=== PATIENT | female | born 1935 | race Caucasian/White ===

== ENCOUNTER → 2021-12-25 | Outpatient (CLI) | payer MEDICARE, OTHER, SELFPAY ==
--- NOTE | 2021-12-25 11:14 | RAD_ITS ---
EXAM: XR BILATERAL HIPS WITH PELVIS WHEN PERFORMED, 2 VIEWS CLINICAL INDICATION: HIP PAIN TECHNIQUE: Frontal view of the bilateral hips with pelvis when performed. This report was created using [employer] report generation technology. COMPARISON: None. FINDINGS: BONES/JOINTS: Mostly mild degenerative changes of the symphysis, SI joints, hips, and spine. No unusual lytic or sclerotic lesions of bone to include absence of acute or healing fracture or malalignment. Iliac crest enthesopathy. SOFT TISSUES: Soft tissues are normal. No soft tissue swelling or gas. 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 No acute or healing fracture or malalignment. Electronically Signed: Eulalio Nagy MD at 4:45 EDT ,
== END | disposition home or self-care (01) ==
LOC: RAD 11:04
PROVIDERS: PCP Internal Medicine; Referring Provider Anesthesiology Pain Medicine; Visit Provider Anesthesiology Pain Medicine
DX: M25.551 Pain in right hip (principal); M25.552 Pain in left hip
CPT/HCPCS: 73521

== ENCOUNTER 2023-03-25 09:28 | Emergency (ER) | payer MEDICARE, OTHER, SELFPAY ==
[2023-03-25 09:29] VITALS: BP 155/75; PULSE 56; RESP 16; TEMP 36.3; O2SAT 96; BMI 28.8
--- NOTE | 2023-03-25 10:57 | EX.ED.DYSGE1 ---
HPI History of Present Illness Chief Complaint: Headache Informant: patient and spouse/S.O. Narrative Narrative: Presents increasing pain nontraumatic right neck radiate up the side of her head in the occipital region. Pain goes into her shoulder. No fevers. She has had shingles with the vaccine. Is been no rash. 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 No diabetes history. States symptoms worse with head movement and palpation. Prior similar symptoms: No PFSH PFSH Medical History A-fib GERD (gastroesophageal reflux disease) HLD (hyperlipidemia) HTN (hypertension) Home Medications diltiazem HCl 120 mg capsule,extended release 24 hr 120 mg PO Q24H A-FIB 03/25/23 [History Last Taken Unknown] gabapentin 100 mg capsule 300 mg PO Q12H 03/25/23 [History Last Taken Unknown] hydrochlorothiazide 25 mg tablet 25 mg PO .Q24 03/25/23 [History Last Taken Unknown] lovastatin 20 mg tablet 20 mg PO DAILY 03/25/23 [History Last Taken Unknown] metoprolol tartrate 25 mg tablet 25 mg PO .Q24 03/25/23 [History Last Taken Unknown] prednisone 20 mg tablet 60 mg (3 x 20 mg) PO DAILY #15 TABLETS 03/25/23 [Rx Last Taken Unknown] Allergy/AdvReac Type Severity Reaction Status Date / Time Sulfa (Sulfonamide Allergy Severe Abd Verified 03/25/23 09:32 Antibiotics) cramps/diarrhea Surgical History (Updated 03/25/23 @ 10:10 by Ольга Edmondson) H/O shoulder surgery Social History Smoking Status: Never smoker ROS ROS ED Constitutional Constitutional ED: Denies chills, fever(s) or sweats Eyes Eyes: Denies change in vision ENT ENT ED: Denies dysphagia or sore throat Cardiovascular Cardiovascular: Denies chest pain, leg edema, palpitations or racing heartbeat Respiratory/Chest Respiratory/Chest: Denies cough, dyspnea or dyspnea on exertion Gastrointestinal Gastrointestinal: Denies abdominal pain, diarrhea or vomiting Genitourinary Genitourinary ED: Denies dysuria, hematuria or urinary frequency Musculoskeletal Musculoskeletal: Reports neck pain; Denies back pain or extremity pain Integumentary Denies rash or wounds Neurologic Neurologic: Reports headache(s); Denies paresthesias or weakness EXAM Physical Exam Const Vital Signs: 03/25/23 09:29 03/25/23 12:31 Temperature 97.4 F L Temperature Source Temporal Pulse Rate 56 L 84 Respiratory Rate 16 16 Blood Pressure 155/75 H Blood Pressure Mean 101 Pulse Ox 96 98 Oxygen Delivery Method Room Air Positive well nourished and well developed General Appearance ED: well developed and NAD HEENT Reports moist mucous membranes normocephalic and atraumatic Eyes PERRL, EOMs intact bilaterally and conjunctivae normal General Eye ED: Yes normal appearance of both eyes Neck no lymphadenopathy and supple General: tenderness and other Tender palpation over distal right paracervical. There is tightness and tension in this area. There is no current rash neck or scalp region. Spurling's test was negative bilaterally. Chest Wall Chest: Negative for tenderness Resp normal respiratory effort and normal air movement Effort and Inspection: symmetric chest movement; Negative for respiratory distress Cardio regular rate, regular rhythm and no murmurs Peripheral Pulses: pulses 2+ throughout GI normal to inspection, nondistended, normoactive bowel sounds and non-tender Palpation: Negative for guarding or rebound tenderness present Back/Spine no CVA tenderness and no thoracic nor lumbar tenderness Extremity normal to inspection General Extremety ED: Negative for edema or tenderness General Extremity: Negative for edema Neuro oriented x3 and no sensory deficits noted Sensorium / Orientation: awake and alert Skin no rashes or lesions noted and no wounds MDM MDM MDM Narrative Medical decision making narrative: Interventions / MDM: Differential diagnosis: Cervical neck strain, shingles Diagnosis considered but do not suspect: No clinical meningitis My EKG interpretation: N/A Imaging independently reviewed and interpreted by myself: N/A External documents reviewed: N/A Test considered but not ordered:N/A ED course: Patient exam notes tension right cervical region reproducible. However has tenderness with light touch occipital region at this time there is no current rash. She is nontoxic, no meningismus. Initial treated with Valium p.o. low-dose. Reevaluation she reports no improvement however on exam there is improved tension. She is nondiabetic she reports light touch sensation discomfort occiput region. Discussed highly possibility of shingles that could develop with her symptoms. Discussed starting steroids for which she agrees. She will increase her gabapentin to 3 times a day. She will monitor for rash discussed contacting PCP or returning for antiviral medications. She understands the plan. All questions were answered. Re-evaluation: stable Disposition discussed with patient/family/significant other: Patient and significant other Case discussed with consulting clinician: N/A This note was generated with [employer] dictation software. It may contain incorrect words, spelling, and punctuation that were not noted in checking the note before signing. Discharge Plan Triage Chief Complaint: Headache ED Provider: Kai Alvarez Dx/Rx/DC Orders Clinical Impression: Tension headache, Neck muscle strain Instructions: ED Headache, Tension, ED Neck Sprain or Strain Prescriptions: New prednisone 20 mg tablet 60 mg PO DAILY Qty: 15 0RF No Action diltiazem HCl 120 mg capsule,extended release 24hr 120 mg PO Q24H Patient Comments: TAKE 1 CAPSULE BY MOUTH EVERY DAY gabapentin 100 mg capsule 300 mg PO Q12H hydrochlorothiazide 25 mg tablet 25 mg PO .Q24 Patient Comments: TAKE 1 TABLET BY MOUTH EVERY DAY lovastatin 20 mg tablet 20 mg PO DAILY metoprolol tartrate 25 mg tablet 25 mg PO .Q24 Patient Comments: TAKE 1/2 TABLET BY MOUTH TWICE A DAY Primary Care Provider: Shahram Doss Referrals: Shahram Doss MD [Primary Care Provider] - 3-5 Days Activity Restrictions/Additional Instructions: Your exam and symptoms consistent with cervical neck strain muscle with tension headache. However you have sensation tingling sensation along nerve dermatomes with no current rash. Continue gabapentin to 3 times a day, use steroid as prescribed, monitor for rash if develops discussed with your PCP or return for viral medicine treatment. Disposition Disposition: Home, Self Care Discharge Date/Time: 03/25/23 12:31
[2023-03-25] MEDS: diazePAM 2 MG Tablet PO (11:11)
[2023-03-25 12:31] VITALS: PULSE 84; RESP 16; O2SAT 98
== END 2023-03-25 12:31 | disposition home or self-care (01) ==
PROVIDERS: Emergency Provider Emergency Medicine; PCP Internal Medicine; Visit Provider Emergency Medicine
DX: G44.209 Tension-type headache, unspecified, not intractable (principal); I48.91 Unspecified atrial fibrillation; S16.1XXA Strain of muscle, fascia and tendon at neck level, initial encounter; X58.XXXA Exposure to other specified factors, initial encounter; I10 Essential (primary) hypertension; E78.5 Hyperlipidemia, unspecified; K21.9 Gastro-esophageal reflux disease without esophagitis; G62.9 Polyneuropathy, unspecified
CPT/HCPCS: 99282

== ENCOUNTER 2024-10-24 11:36 | Emergency (ER) | payer MEDICARE, OTHER, SELFPAY ==
[2024-10-24 11:37] VITALS: BP 135/86; PULSE 90; RESP 16; TEMP 36.2; O2SAT 95
--- NOTE | 2024-10-24 12:39 | EDS_ITS ---
HPI <ROMA Hyatt - Last Filed: 10/24/24 14:08> History of Present Illness Chief Complaint: Fall Narrative Narrative: Patient presenting today with a laceration to her right knee following a mechanical fall this afternoon. She tripped while at [employer] and landed directly on her knee. She is unsure when her last tetanus was updated. She has Eliquis due to history of A-fib. She denies hitting her head, LOC, or any other injury. PFSH <ROMA Hyatt - Last Filed: 10/24/24 14:08> PFSH Medical History GERD (gastroesophageal reflux disease) HLD (hyperlipidemia) HTN (hypertension) A-fib Home Medications ?Medication ?Instructions ?Recorded ?Last Taken ?Type diltiazem HCl 120 mg 120 mg PO Q24H A-FIB 3 Unknown History capsule,extended release 24 hr gabapentin 100 mg capsule 300 mg PO Q12H 03/25/23 Unkn own History hydrochlorothiazide 25 mg tablet 25 mg PO .Q24 3 Unknown History lovastatin 20 mg tablet 20 mg PO DAILY 03/25/23 Unkn own History metoprolol tartrate 25 mg tablet 25 mg PO .Q24 3 Unknown History prednisone 20 mg tablet 60 mg (3 x 20 mg) PO DAILY # 15 03/25/23 Unknown Rx TABLETS Allergy/AdvReac Type Severity Reaction Status Date / Time Sulfa (Sulfonamide Allergy Severe Abd Verified 03/25/23 09:32 Antibiotics) cramps/diarrhea Surgical History H/O shoulder surgery Social History (Updated 10/24/24 @ 12:52 by My Suarez) household members: spouse housing: house Smoking Status: Never smoker ROS <ROMA Hyatt - Last Filed: 10/24/24 14:08> ROS ED Constitutional Constitutional ED: Denies chills or fever(s) Cardiovascular Cardiovascular: Denies chest pain Respiratory/Chest Respiratory/Chest: Denies dyspnea Gastrointestinal Gastrointestinal: Denies abdominal pain Musculoskeletal Musculoskeletal: Reports other Details: Right knee pain Integumentary Reports laceration Neurologic Neurologic: Denies paresthesias EXAM <ROMA Hyatt Last Filed: 10/24/24 14:08> Physical Exam Const Vital Signs: 10/24/24 11:37 10/24/24 12:52 10/24/24 13:00 Temperature 97.1 F L Temperature Source Temporal Pulse Rate 90 84 Respiratory Rate 16 17 Respiratory Effort Normal Non-Labored Blood Pressure 135/86 H 130/80 H Blood Pressure Mean 102 96 Pulse Ox 95 97 Oxygen Delivery Method Room Air Room Air Positive well nourished, well developed and no apparent distress General Appearance ED: well developed HEENT Reports normocephalic and head/scalp atraumatic Mouth ED: Yes moist mucous membranes normal Eyes PERRL and EOMs intact bilaterally Neck full ROM and supple Chest Wall inspection of chest normal Resp normal respiratory effort and clear to auscultation bilaterally Cardio regular rhythm Cardio Narrative: Irregularly irregular rhythm Back/Spine normal ROM and normal to inspection Extremity Extremity Narrative: 6 cm full-thickness flap-like laceration to the right knee, patient is able to flex and extend his knee.. Minimal soft tissue swelling to the knee, right DP pulse 2+, good cap refill, sensation intact. Neuro oriented x3, moves all extremities, no focal motor deficits and no sensory deficits noted Sensorium / Orientation: awake and alert Psych mental status grossly normal and thought process normal Skin Skin Narrative: Aside from laceration to right knee no other rashes or lesions noted <Dr. Natalie Frazier DO - Last Filed: 10/24/24 14:04> Physical Exam Const Vital Signs: 10/24/24 11:37 10/24/24 12:52 10/24/24 13:00 Temperature 97.1 F L Temperature Source Temporal Pulse Rate 90 84 Respiratory Rate 16 17 Respiratory Effort Normal Non-Labored Blood Pressure 135/86 H 130/80 H Blood Pressure Mean 102 96 Pulse Ox 95 97 Oxygen Delivery Method Room Air Room Air PROC <ROMA Hyatt Last Filed: 10/24/24 14:08> Procedures Lacerations Laceration: Length: 6 cm Depth: Sub Q Shape: Flap Prep: Chlorhexadine Laceration repair: Irrigated, Lidocaine with epi and Skin sutures Number of Sutures/Master: 11 Suture Information: Ethilon, Horizontal, Mattress and 4-0 MDM <ROMA Hyatt Last Filed: 10/24/24 14:08> [facility] Narrative Medical decision making narrative: Patient presenting today due to a laceration to her right knee following a mechanical fall this afternoon at [employer]. She tripped and landed directly on her knee. She does have a laceration that will require suture repair. X-ray of the knee will be obtained to assess for fracture. Tetanus will be updated. X- ray shows degenerative changes is aware of. No acute fracture. She tolerated suture repair well. Wound care instruction discussed. Knee was bandaged with bacitracin ointment and an Eric bandage was applied. Return instructions discussed. She is to have sutures removed in 10 to 14 days by her PCP. She will be discharged home in stable condition. I have personally performed a face to face assessment of the patient and have reviewed the ALEJANDRA Note. I performed a substantive portion of the visit including all aspects of the following. My hollins findings include: History is [patient presents with a fall and laceration to her right knee. Patient states that she tripped on the sidewalk and fell onto her right knee and forward onto her right elbow. She did not strike her head. She states her glasses stayed on the whole time. She is on Xarelto for history of A-fib. Denies any significant pain to her elbow. She has been ambulatory since the fall. Unsure of her last tetanus.] Exam is [HETISHA-PERRKAPIL, EOMI. Cranial nerves II through XII grossly intact. TMs clear. Mucous membranes moist. No adenopathy. No external evidence of trauma to her head. Cardiovascular-regular rate and rhythm without murmur or ectopy Lungs-clear to auscultation, chest wall stable without crepitus or subcu emphysema Abdomen-normoactive bowel sounds, soft, nontender, no rebound or rigidity, no peritoneal signs. Extremities-intact ?4. Right knee-patient has a sick centimeter flap-like laceration over the anterior aspect of the knee over the area of the kneecap. No significant bony tenderness on exam. Good range of motion. No significant active bleeding currently. Right elbow-small contusion over the olecranon. No broken skin. Normal range of motion. No bony tenderness on exam. Neurovascular intact distally. Medical Decison Making [patient had x-rays of the right knee that showed no fractures and did show degenerative changes especially of the lateral compartment. Please see procedure note for suture repair performed by physician assistant art director. Patient advised to have sutures removed in 10 days. She is to return if increasing pain, redness, swelling, purulent drainage, or condition should worsen anyway.] Other additions or changes: [None] Radiography X-Ray: Read by ED Physician Diagnostic Testing: Clinical Impression(s) from Imaging Studies Knee X-Ray 10/24/24 13:05 IMPRESSION: Degenerative changes as above. Reading Location: [id number] <Dr. Natalie Frazier, DO - Last Filed: 10/24/24 14:04> [facility] Narrative Medical decision making narrative: Patient presenting today due to a laceration to her right knee following a mechanical fall this afternoon at [employer]. She tripped and landed directly on her knee. She does have a laceration that will require suture repair. X-ray of the knee will be obtained to assess for fracture. Tetanus will be updated. I have personally performed a face to face assessment of the patient and have reviewed the ALEJANDRA Note. I performed a substantive portion of the visit including all aspects of the following. My hollins findings include: History is [patient presents with a fall and laceration to her right knee. Patient states that she tripped on the sidewalk and fell onto her right knee and forward onto her right elbow. She did not strike her head. She states her glasses stayed on the whole time. She is on Xarelto for history of A-fib. Denies any significant pain to her elbow. She has been ambulatory since the fall. Unsure of her last tetanus.] Exam is [HEENT-PERRLA, EOMI. Cranial nerves II through XII grossly intact. TMs clear. Mucous membranes moist. No adenopathy. No external evidence of trauma to her head. Cardiovascular-regular rate and rhythm without murmur or ectopy Lungs-clear to auscultation, chest wall stable without crepitus or subcu emphysema Abdomen-normoactive bowel sounds, soft, nontender, no rebound or rigidity, no peritoneal signs. Extremities-intact ?4. Right knee-patient has a sick centimeter flap-like laceration over the anterior aspect of the knee over the area of the kneecap. No significant bony tenderness on exam. Good range of motion. No significant active bleeding currently. Right elbow-small contusion over the olecranon. No broken skin. Normal range of motion. No bony tenderness on exam. Neurovascular intact distally. Medical Decison Making [patient had x-rays of the right knee that showed no fractures and did show degenerative changes especially of the lateral compartment. Please see procedure note for suture repair performed by physician assistant art director. Patient advised to have sutures removed in 10 days. She is to return if increasing pain, redness, swelling, purulent drainage, or condition should worsen anyway.] Other additions or changes: [None] Radiography Diagnostic Testing: Clinical Impression(s) from Imaging Studies Knee X-Ray 10/24/24 13:05 IMPRESSION: Degenerative changes as above. Reading Location: [id number] Discharge Plan Triage Chief Complaint: Fall ED Midlevel Provider: Daniela Hilario ED Provider: Natalie Frazier Dx/Rx/DC Orders Clinical Impression: Laceration of knee, Fall Instructions: ED Laceration, All Closures Prescriptions: No Action diltiazem HCl 120 mg capsule,extended release 24hr 120 mg PO Q24H Patient Comments: TAKE 1 CAPSULE BY MOUTH EVERY DAY gabapentin 100 mg capsule 300 mg PO Q12H hydrochlorothiazide 25 mg tablet 25 mg PO .Q24 Patient Comments: TAKE 1 TABLET BY MOUTH EVERY DAY lovastatin 20 mg tablet 20 mg PO DAILY metoprolol tartrate 25 mg tablet 25 mg PO .Q24 Patient Comments: TAKE 1/2 TABLET BY MOUTH TWICE A DAY prednisone 20 mg tablet 60 mg PO DAILY Qty: 15 0RF Primary Care Provider: Shahram Doss Referrals: Shahram Doss MD [Primary Care Provider] - 10-14 Days suture removal Activity Restrictions/Additional Instructions: Have sutures removed in 14 days, return for any signs of infection. Print Language: Vietnamese Disposition Disposition: Home, Self Care
[2024-10-24] MEDS: Lidocaine 1% /Epi 1:100 (20ml) 20 ML Vial 10 ML INFILT (12:50)
[2024-10-24] MEDS: Diphth,Pertuss(Acell),Tet Vac 0.5 ML Vial IM (12:50)
[2024-10-24 13:00] VITALS: BP 130/80; PULSE 84; RESP 17; O2SAT 97
--- NOTE | 2024-10-24 13:05 | RAD_ITS ---
EXAM: XR Right Knee Complete, 4 or More Views CLINICAL INDICATION: FALL, LACERATION TECHNIQUE: Four or more views of the right knee. COMPARISON: No relevant prior studies available. FINDINGS: BONES/JOINTS: Moderate tricompartmental degenerative changes. No acute fracture. No dislocation. SOFT TISSUES: Soft tissue swelling. RAD/Knee 4 or More Views IMPRESSION: Degenerative changes as above. Reading Location: [id number]
[2024-10-24 14:00] VITALS: BP 135/78; PULSE 80; RESP 15; O2SAT 97
[2024-10-24 14:19] VITALS: BP 135/78; PULSE 80; RESP 15; TEMP 36.6; O2SAT 97
== END 2024-10-24 14:20 | disposition home or self-care (01) ==
PROVIDERS: Emergency Provider Emergency Medicine; PCP Internal Medicine; Referring Provider Emergency Medicine; Visit Provider Emergency Medicine
DX: S81.011A Laceration without foreign body, right knee, initial encounter (principal); I48.91 Unspecified atrial fibrillation; W18.09XA Striking against other object with subsequent fall, initial encounter; S50.01XA Contusion of right elbow, initial encounter; Y92.22 Religious institution as the place of occurrence of the external cause; Z23 Encounter for immunization; M19.90 Unspecified osteoarthritis, unspecified site; I10 Essential (primary) hypertension; E78.5 Hyperlipidemia, unspecified; K21.9 Gastro-esophageal reflux disease without esophagitis; Z79.01 Long term (current) use of anticoagulants; Z79.899 Other long term (current) drug therapy
CPT/HCPCS: 12002; 73564; 90471; 90715; 99283